=== PATIENT | female | born 1990 | race Caucasian/White ===

== ENCOUNTER 2022-07-31 11:56 | Emergency (ER) | payer OTHER, SELFPAY ==
[2022-07-31 11:58] VITALS: BP 139/92; PULSE 84; RESP 16; TEMP 36.8; O2SAT 100; BMI 35.6
--- NOTE | 2022-07-31 12:04 | NURSING ---
NO OLD EKGS
--- NOTE | 2022-07-31 12:28 | EKG12_ITS ---
Test Reason : PALPS Blood Pressure : / mmHG Vent. Rate : 076 BPM Atrial Rate : 076 BPM P-R Int : 140 ms QRS Dur : 084 ms QT Int : 384 ms P-R-T Axes : 053 015 024 degrees QTc Int : 432 ms Normal sinus rhythm Normal ECG Confirmed by MARÍA ELENA HELTON, DINAH ([id number]), editor producer DESTINY FREEMAN ([id number]) on 08/02/2022 10:25:51 A M Referred By: AR Confirmed By:CYRIL RING MD
--- NOTE | 2022-07-31 12:31 | EX.ED.DYSGE1 ---
HPI History of Present Illness Chief Complaint: Palpitations Narrative Narrative: 32-year-old female presenting to the emergency department with multiple complaints. She states that a week and a half ago she began to have a migraine headache. She describes it as at the back of her head. She notes that I developed a bunch of symptoms after that. Trying to get to what those symptoms larger seems to be difficult however I am able to find out that she went to the urgent care on Friday and was diagnosed with bilateral otitis media and started on amoxicillin. She has now developed fluttering in her chest and chest pressure. No DVT PE risk factors. Her primary care doctor is in [facility]. She notes intermittent fevers. Last fever was yesterday. She states she has not take any prescription medications. She is otherwise healthy. PFSH PFSH Medical History no medical history Allergy/AdvReac Type Severity Reaction Status Date / Time levocetirizine [From Xyzal] Allergy Hives Verified 07/31/22 12:01 sulfamethoxazole Allergy Hives Verified 07/31/22 12:01 [From Bactrim] trimethoprim [From Bactrim] Allergy Hives Verified 07/31/22 12:01 Social History Smoking Status: Never smoker ROS ROS ED Constitutional Constitutional ED: Reports chills and fever(s); Denies weight loss Eyes Eyes: Denies change in vision or diplopia ENT ENT ED: Reports ear pain; Denies rhinorrhea or sore throat Cardiovascular Cardiovascular: Reports chest pain and palpitations; Denies orthopnea or racing heartbeat Respiratory/Chest Respiratory/Chest: Denies cough, dyspnea or orthopnea Gastrointestinal Gastrointestinal: Denies abdominal pain, diarrhea, nausea or vomiting Genitourinary Genitourinary ED: Denies dysuria, hematuria or urinary frequency Musculoskeletal Musculoskeletal: Denies arthralgias or myalgias Integumentary Denies abscess or rash Neurologic Neurologic: Reports headache(s); Denies weakness Psychiatric Psychiatric: Denies anxiety, depression, suicidal ideation or suicidal thoughts Endocrine Endocrinology: Denies polydipsia, polyphagia or polyuria Allergic/Immunologic Allergic/Immunologic ED: Denies mouth swelling, tongue swelling or urticaria EXAM Physical Exam Const Vital Signs: 07/31/22 11:58 07/31/22 12:22 Temperature 98.2 F Temperature Source Temporal Pulse Rate 84 Respiratory Rate 16 Respiratory Effort Normal Non-Labored Respiratory Pattern Normal Blood Pressure 139/92 H Blood Pressure Mean 107 Pulse Ox 100 Oxygen Delivery Method Room Air Positive well nourished and well developed General Appearance ED: well developed HEENT Reports normocephalic, head/scalp atraumatic and moist mucous membranes HEENT Narrative: Bilateral tympanic membranes appear normal. Eyes PERRL and EOMs intact bilaterally Neck no lymphadenopathy, supple and no JVD Resp normal respiratory effort and clear to auscultation bilaterally Cardio regular rate, regular rhythm and no murmurs GI normal to inspection, nondistended, normoactive bowel sounds and non-tender Palpation: soft Back/Spine no CVA tenderness and normal ROM Extremity normal to inspection General Extremety ED: Negative for edema General Extremity: Negative for edema Neuro oriented x3 and CN's II-XII intact bilaterally Sensorium / Orientation: alert Motor Exam: strength 5/5 throughout Psych mental status grossly normal Mood & Affect: Negative for depressed or tearful Skin no rashes or lesions noted and no wounds MDM MDM MDM Narrative Medical decision making narrative: My interpretation of her chest x-ray is no acute process. CBC is normal. D-dimer is normal. CMP is normal. Troponin is normal. My interpretation of the EKG is a normal sinus rhythm. She is remained in a normal sinus rhythm. COVID and influenza are negative. the patient received Toradol for headache as well as IV fluids. Clinically the patient appears quite well. She is currently afebrile with normal vital signs. Her blood work is unremarkable. I think the patient most likely has a viral illness and can be treated conservatively. Lab Data Attestation: I reviewed the patient's lab results. Labs: Laboratory Results - last 24 hr 07/31/22 07/31/22 07/31/22 12:39 12:39 12:39 WBC 7.3 RBC 4.56 Hgb 13.2 Hct 40.3 MCV 88.4 MCH 28.9 MCHC 32.8 RDW Std Deviation 41.4 RDW Coeff of Aaron 12.8 Plt Count 231 MPV 10.7 Immature Gran % (Auto) 0.100 Neut % (Auto) 72.7 H Lymph % (Auto) 17.6 L Izard % (Auto) 5.5 Eos % (Auto) 3.4 Baso % (Auto) 0.7 Absolute Neuts (auto) 5.3 Absolute Lymphs (auto) 1.28 Nucleated RBC % 0 D-Dimer Quant (PE/DVT) < 0.27 L Sodium 141 Potassium 3.6 Chloride 107 Carbon Dioxide 31.0 Anion Gap 3 L BUN 11 Creatinine 0.77 Estim Creat Clear Calc 98.19 Est GFR (MDRD) Af Amer 112 Est GFR (MDRD) Non-Af 92 BUN/Creatinine Ratio 14.3 Glucose 87 Calcium 9.1 Total Bilirubin 0.30 AST 19 ALT 28 Alkaline Phosphatase 138 H Troponin I High Sens 10 Total Protein 7.9 Albumin 4.1 Globulin 3.8 Albumin/Globulin Ratio 1.1 Serum , Qual 07/31/22 12:39 WBC RBC Hgb Hct MCV MCH MCHC RDW Std Deviation RDW Coeff of Aaron Plt Count MPV Immature Gran % (Auto) Neut % (Auto) Lymph % (Auto) Izard % (Auto) Eos % (Auto) Baso % (Auto) Absolute Neuts (auto) Absolute Lymphs (auto) Nucleated RBC % D-Dimer Quant (PE/DVT) Sodium Potassium Chloride Carbon Dioxide Anion Gap BUN Creatinine Estim Creat Clear Calc Est GFR (MDRD) Af Amer Est GFR (MDRD) Non-Af BUN/Creatinine Ratio Glucose Calcium Total Bilirubin AST ALT Alkaline Phosphatase Troponin I High Sens Total Protein Albumin Globulin Albumin/Globulin Ratio Serum , Qual NEGATIVE Radiography Diagnostic Testing: Clinical Impression(s) from Imaging Studies Chest X-Ray 07/31/22 12:45 IMPRESSION: Normal x-ray examination of the chest. Electronically Signed: Clem Restrepo MD at 13:06 EST , EKG Initial EKG: Attestation: I personally reviewed and interpreted this EKG as follows: Comments: EKG is normal sinus rhythm with ventricular rate of 76 bpm Discharge Plan Triage Chief Complaint: Palpitations ED Provider: Tulio Sesay Dx/Rx/DC Orders Clinical Impression: Heart palpitations, Acute viral syndrome, Headache Instructions: ED Palpitations Primary Care Provider: ARACELIS CAMPO MD Referrals: DR CONCETTA [Other] Activity Restrictions/Additional Instructions: Follow-up with primary care as needed Disposition Disposition: Home, Self Care
--- NOTE | 2022-07-31 12:45 | RAD_ITS ---
STUDY: X-RAY CHEST REASON FOR EXAM: Female, 32 years old. Chest pain TECHNIQUE: Single AP portable view of the chest. COMPARISON: None. FINDINGS: EKG electrodes are seen. The lungs are clear and expanded. There is no demonstrated pleural abnormality. Normal size heart. Normal mediastinum and ceferino. Normal visualized pulmonary arteries. Normal visualized aortic arch and descending thoracic aorta. Normal visualized thoracic spine. Normal visualized ribs, clavicles, and shoulders. There is no demonstrated abnormality of the visualized soft tissue structures of the upper abdomen. RAD/Chest 1 View (Portable) IMPRESSION: Normal x-ray examination of the chest. Electronically Signed: Clem Restrepo MD at 13:06 EST ,
[2022-07-31 12:46] LABS: Absolute Lymphocyte Count 1.28 X10^3/uL (0.83-4.51); Absolute Neutrophil Count 5.3 X10^3/uL (2.0-7.7); Basophil# 0.05 X10^3/uL; Basophil% 0.7 % (0-1); Eosinophil# 0.25 X10^3/uL; Eosinophils% 3.4 % (0-5); Hematocrit 40.3 % (37-47); Hemoglobin 13.2 g/dL (12.0-15.0); Lymphocyte # 1.28 X10^3/ul (0.83-4.51); Lymphocyte % 17.6 % (19-41); Mean Corp Hgb Conc 32.8 g/dL (32-36); Mean Corpuscular Hgb 28.9 pg (27.0-32.0); Mean Corpuscular Volume 88.4 fL (81-99); Mean Platelet Vol. 10.7 fl (6.2-12.0); Monocyte% 5.5 % (0-10); NRBC Flagged by Analyzer 0 % (0-5); Neutrophil # 5.28 X10^3/uL (2.7-7.7); Neutrophil % 72.7 % (47-70); Platelet Count 231 K/mm3 (150-450); RBC Distribution Width CV 12.8 % (11.6-14.6); RBC Distribution Width SD 41.4 fl (35.1-43.9); Red Blood Count 4.56 M/mm3 (4.2-5.4); White Blood Count 7.3 K/mm3 (4.4-11.0)
[2022-07-31] MEDS: 0.9% Normal Saline 1,000 ML 1000 ML IV (12:49)
[2022-07-31 12:58] LABS: D-Dimer Quantitative (DVT/PE) < 0.27 FEU/ug/m (0.27-0.49)
[2022-07-31 13:02] LABS: Internal QC Validated? YES +Cl - CLEAR BKGD; Pregnancy, Serum, hCG Quali. NEGATIVE Negative
[2022-07-31 13:06] LABS: ALB/GLOB Ratio 1.1 RATIO (0.9-2.4); AST(SGOT) 19 U/L (15-37); Alanine Aminotransfer ALT/SGPT 28 U/L (13-56); Albumin, Serum 4.1 g/dL (3.2-5.0); Alkaline Phosphatase 138 U/L (45-117); Anion Gap 3 (5-15); BUN 11 mg/dL (7-18); BUN/Creat Ratio 14.3 RATIO (10-20); Calcium,Total 9.1 mg/dL (8.5-10.1); Chloride 107 mmol/L (98-107); Creatinine, Serum 0.77 mg/dL (0.55-1.02); EST Glomerular Filtration Rate 92 mL/min (>60); Est Glom Filt Rate - Afr Amer 112 mL/min (>60); Estimated Creatinine Clearance 98.19 ml/min; Globulin 3.8 g/dL (2.2-4.2); Glucose 87 mg/dL (74-106); Potassium 3.6 mmol/L (3.5-5.1); Protein, Total 7.9 g/dL (6.4-8.2); Sodium Level 141 mmol/L (136-145); Troponin-I HS 10 pg/mL (3.0-54.0)
[2022-07-31 15:19] VITALS: BP 124/71
== END 2022-07-31 15:19 | disposition home or self-care (01) ==
PROVIDERS: Emergency Provider Emergency Medicine; Visit Provider Emergency Medicine
DX: R00.2 Palpitations (principal); R51.9 Headache, unspecified; B34.9 Viral infection, unspecified; R07.9 Chest pain, unspecified; Z20.822 Contact with and (suspected) exposure to COVID-19
CPT/HCPCS: 71045; 80053; 84484; 84703; 85025; 85379; 87428; 93005; 96360; 96361; 99284; J7030; A4216

== ENCOUNTER 2022-08-05 12:42 | Emergency (ER) | payer OTHER, SELFPAY ==
[2022-08-05 12:45] VITALS: BP 155/92; PULSE 96; RESP 18; TEMP 36.7; O2SAT 99; BMI 35.5
[2022-08-05 13:05] LABS: Mucous, Urine 0 SEEN /hpf (<or=2+); White Blood Cells 0 SEEN /hpf (0-5)
[2022-08-05 13:07] LABS: Color, Urine Yellow (Yellow); Glucose, Dipstick Normal (Normal); Ketone-Dipstick Negative (Negative); Leukocyte Esterase-Dipstick Negative /ul (Negative); Nitrite-Dipstick Negative (Negative); Occult Blood-Urine 10 /ul (Negative); Protein-Dipstick Negative (Negative); Urine Bilirubin Dipstick Negative (Negative); Urine Clarity Sl. Cloudy (Clear); Urine Urobilinogen Normal (Normal)
[2022-08-05 13:08] LABS: Internal QC Validated? YES +Cl - CLEAR BKGD; Pregnancy, Urine Negative Negative
[2022-08-05 13:13] LABS: Bacteria 1+ /hpf (None Seen); Red Blood Cells-Urine 0-5 SEEN /hpf (0-5); Squamous Epithelial Cells - UA 0-5 SEEN /hpf (5-10)
--- NOTE | 2022-08-05 14:11 | EKG12_ITS ---
Test Reason : CP Blood Pressure : / mmHG Vent. Rate : 076 BPM Atrial Rate : 076 BPM P-R Int : 138 ms QRS Dur : 080 ms QT Int : 378 ms P-R-T Axes : 044 004 014 degrees QTc Int : 425 ms Normal sinus rhythm Normal ECG Confirmed by OSORIO HELTON, MARIANNE ([id number]), development editor DESTINY FREEMAN ([id number]) on 08/07/2022 11:11:15 AM Referred By: Confirmed By:MARIANNE AC MD
--- NOTE | 2022-08-05 14:23 | NURSING ---
NO OLD EKGS
[2022-08-05 14:41] LABS: Absolute Lymphocyte Count 1.62 X10^3/uL (0.83-4.51); Absolute Neutrophil Count 6.2 X10^3/uL (2.0-7.7); Basophil# 0.04 X10^3/uL; Basophil% 0.5 % (0-1); Eosinophil# 0.21 X10^3/uL; Eosinophils% 2.4 % (0-5); Hematocrit 40.4 % (37-47); Hemoglobin 13.3 g/dL (12.0-15.0); Lymphocyte # 1.62 X10^3/ul (0.83-4.51); Lymphocyte % 18.7 % (19-41); Mean Corp Hgb Conc 32.9 g/dL (32-36); Mean Corpuscular Hgb 28.9 pg (27.0-32.0); Mean Corpuscular Volume 87.8 fL (81-99); Mean Platelet Vol. 10.3 fl (6.2-12.0); Monocyte# 0.58 X10^3/uL; Monocyte% 6.7 % (0-10); NRBC Flagged by Analyzer 0 % (0-5); Neutrophil # 6.19 X10^3/uL (2.7-7.7); Neutrophil % 71.4 % (47-70); Platelet Count 233 K/mm3 (150-450); RBC Distribution Width CV 12.7 % (11.6-14.6); RBC Distribution Width SD 40.6 fl (35.1-43.9); White Blood Count 8.7 K/mm3 (4.4-11.0)
[2022-08-05 14:57] LABS: Anion Gap 7 (5-15); BUN 13 mg/dL (7-18); BUN/Creat Ratio 16.6 RATIO (10-20); Calcium,Total 9.5 mg/dL (8.5-10.1); Chloride 105 mmol/L (98-107); Creatinine, Serum 0.78 mg/dL (0.55-1.02); EST Glomerular Filtration Rate 90 mL/min (>60); Est Glom Filt Rate - Afr Amer 109 mL/min (>60); Estimated Creatinine Clearance 96.93 ml/min; Glucose 97 mg/dL (74-106); Potassium 3.7 mmol/L (3.5-5.1); Sodium Level 139 mmol/L (136-145); Troponin-I HS 11 pg/mL (3.0-54.0)
--- NOTE | 2022-08-05 15:50 | RAD_ITS ---
INDICATION: chest pain EXAMINATION/TECHNIQUE: X-RAY - XR Chest 1 View COMPARISON: 07/31/2022. FINDINGS: LINES/DEVICES: None. LUNGS: No consolidation, edema or effusion. No pneumothorax. MEDIASTINUM AND CARDIOVASCULAR STRUCTURES: Cardiac silhouette not enlarged. Central airways and mediastinal contour are unremarkable. BONES AND SOFT TISSUES: Unremarkable. RAD/Chest 1 View (Portable) IMPRESSION: No radiographic evidence of acute cardiopulmonary disease. Electronically Signed: Melia Christianson MD at 16:25 EST Reading Location ID and State: [id number] / Tel , Service support ,
--- NOTE | 2022-08-05 16:09 | ED.VIS.CHEST ---
HPI History of Present Illness Chief Complaint: Chest Pain Informant: patient Onset/Context/Timing Onset: Days Activity at onset: gradual Timing: Intermittent Quality: Positive for Dull Location: Right Chest and Left Chest Current Severity: Mild Maximum Severity: Mild Worsened By: Nothing Relieved By: Nothing Associated Symptoms: Positive for Cough, Fever and Palpitations; Negative for Nausea, Vomiting, Diaphoresis, Dyspnea or Acid Reflux Narrative Narrative: 30-year-old Kelly past medical history. Said on 07 28 she was diagnosed in urgent care bilateral otitis media was placed on amoxicillin his symptoms is resolved. She had palpitations since last Friday. With some chest discomfort which she states is bilateral. Not pleuritic. She has had no travel surgery or immobilization. No hemoptysis. No history of DVT or PE. No cardiac history. She is also had an episode of urinary incontinence with some flank discomfort. She denies dysuria or hematuria. Prior Similar Symptoms: Yes Recent Illness/Hospitalization: No CVD Risk Factors: Negative for Hypertension or Diabetes PE Risk Factors: Negative for Recent Travel/Surgery, Recent Immobilization, Prior DVT or PE, Cancer or OCP + Smoking + >/=35 TAD Risk Factors: Negative for Marfan's Syndrome [facility] Medical History Palpitations Allergy/AdvReac Type Severity Reaction Status Date / Time levocetirizine [From Xyzal] Allergy Hives Verified 08/05/22 12:44 sulfamethoxazole Allergy Hives Verified 08/05/22 12:44 [From Bactrim] trimethoprim [From Bactrim] Allergy Hives Verified 08/05/22 12:44 Social History Smoking Status: Never smoker ROS ROS ED ROS Narrative Urinary incontinence. Atypical chest pain. Fevers that have resolved. Cough. Review of Systems ROS Unobtainable: Denies due to encephalopathy Constitutional Constitutional ED: Reports fever(s); Denies chills Eyes Eyes: Reports none ENT ENT ED: Reports ear pain; Denies rhinorrhea or sore throat Cardiovascular Cardiovascular: Reports as per HPI, chest pain and palpitations; Denies racing heartbeat Respiratory/Chest Respiratory/Chest: Reports cough Genitourinary Genitourinary ED: Denies dysuria or hematuria Musculoskeletal Musculoskeletal: Reports back pain; Denies arthralgias Integumentary Denies abscess Neurologic Neurologic: Denies headache(s) Endocrine Endocrinology: Denies cold intolerance Hematologic/Lymphatic Hematologic/Lymphatic: Denies easy bleeding Allergic/Immunologic Allergic/Immunologic ED: Denies mouth swelling or tongue swelling EXAM Physical Exam Narrative Exam Narrative: Well-appearing 13-year-old female. Vital signs stable afebrile. Pulse ox 9 9% room air no signs hypoxia. H EENT exam unremarkable. TMs normal. Posterior pharynx normal. Neck nontender no lymphadenopathy. Lungs clear to auscultation bilaterally. Heart regular rhythm rate about 80 no murmur. Chest wall nontender. Abdomen soft nontender. Moving all 4 extremities. Neurovascular intact. Calves are nontender without edema or cords. Back nontender. Neurologic exam is awake alert with no focal motor deficits. Const Vital Signs: 08/05/22 12:45 Temperature 98.1 F Temperature Source Temporal Pulse Rate 96 Respiratory Rate 18 Blood Pressure 155/92 H Blood Pressure Mean 113 Pulse Ox 99 Oxygen Delivery Method Room Air Positive well nourished and well developed; Negative for obese, cachectic, contractures or unkempt General Appearance ED: well developed and NAD; Negative for unkempt, cachectic, contractures or pallor Nutritional Appearance: Negative for cachectic or obese HEENT Reports TM's clear and moist mucous membranes; Denies dry mucous membranes normocephalic and atraumatic; Negative for trauma Tympanic Membrane ED: Yes TM's clear Mouth ED: No dry mucous membranes Mouth: No dry mucous membranes Eyes PERRL and EOMs intact bilaterally General Eye ED: Negative for pale conjunctiva or scleral icterus Neck no lymphadenopathy, supple and no JVD General: Negative for tenderness Chest Wall inspection of chest normal and palpation of chest normal Chest: Negative for tenderness Resp normal respiratory effort and clear to auscultation bilaterally Effort and Inspection: Negative for respiratory distress Auscultation: Negative for rales, rhonchi or wheezes Cardio regular rate, regular rhythm, S1 normal heart sound, S2 normal heart sound and no murmurs Rate: Negative for bradycardia Rhythm: Negative for abnormal rhythm Peripheral Pulses: pulses 2+ throughout GI normal to inspection, nondistended, normoactive bowel sounds, soft to palpation, non-tender, non-distended and no masses Auscultation: Negative for hyperactive bowel sounds Palpation: Negative for splenomegaly Back/Spine no CVA tenderness and no thoracic nor lumbar tenderness General Back: Negative for CVA tenderness Cervical Spine: Negative for cervical spine tenderness Extremity normal to inspection General Extremety ED: Negative for edema or pulses abnormal General Extremity: Negative for edema or pulses abnormal Neuro oriented x3, CN's II-XII intact bilaterally and no sensory deficits noted Sensorium / Orientation: awake, alert, oriented to person, oriented to place and oriented to time; Negative for confused, lethargic or stuporous Motor Exam: strength 5/5 throughout Psych mental status grossly normal Appearance: Negative for unkempt Attitude: No agitated Mood & Affect: Negative for depressed, anxious or tearful Skin no rashes or lesions noted and no wounds General Skin Exam: Negative for jaundice or pallor Rashes: No rashes noted Trauma: Negative for abrasion Heart Score History: Slightly/Non-Suspicious ECG: Normal Age: </= 45 years Risk Factors: No Risk Factors Troponin: </= Normal Limit Score: 0 MDM MDM MDM Narrative Medical decision making narrative: 23 March palpitations, atypical chest pain and other symptoms. Her exam is completely normal. Nurses put in protocol orders for chest pain. All were negative. Troponin was 11. Her urine is negative. As was her chest x-ray. She will be discharged home with outpatient follow-up with her primary care physician in [place] or a local primary care physician. Lab Data Attestation: I reviewed the patient's lab results. Lab results narrative: CBC normal. White count 8. H&H 13 and 40. Electrolytes normal gap of 7 normal BUN and creatinine. Glucose 97. UA is negative. No white or red cells. 1+ bacteria. No nitrites. Serum test negative. Chest x-ray negative. EKG normal. Labs: Laboratory Results - last 24 hr 08/05/22 08/05/22 08/05/22 12:58 14:30 14:30 WBC 8.7 RBC 4.60 Hgb 13.3 Hct 40.4 MCV 87.8 MCH 28.9 MCHC 32.9 RDW Std Deviation 40.6 RDW Coeff of Aaron 12.7 Plt Count 233 MPV 10.3 Immature Gran % (Auto) 0.300 Neut % (Auto) 71.4 H Lymph % (Auto) 18.7 L Mcclain % (Auto) 6.7 Eos % (Auto) 2.4 Baso % (Auto) 0.5 Absolute Neuts (auto) 6.2 Absolute Lymphs (auto) 1.62 Nucleated RBC % 0 Sodium 139 Potassium 3.7 Chloride 105 Carbon Dioxide 27.0 Anion Gap 7 BUN 13 Creatinine 0.78 Estim Creat Clear Calc 96.93 Est GFR (MDRD) Af Amer 109 Est GFR (MDRD) Non-Af 90 BUN/Creatinine Ratio 16.6 Glucose 97 Calcium 9.5 Troponin I High Sens 11 Urine Color Yellow Urine Clarity Sl. Cloudy Urine pH 6.0 Ur Specific [place] 1.020 Urine Protein Negative Urine Glucose (UA) Normal Urine Ketones Negative Urine Occult Blood 10 H Urine Nitrite Negative Urine Bilirubin Negative Urine Urobilinogen Normal Ur Leukocyte Esterase Negative Urine RBC 0-5 SEEN Urine WBC 0 SEEN Ur Squamous Epith Cells 0-5 SEEN Urine Bacteria 1+ Urine Mucus 0 SEEN Urine Test Negative Radiography Chest X-Ray - ED: 1 View, Read by ED Physician, Heart, Lungs, Mediastinum, Bony Structures, No Acute Disease and Chronic Changes Diagnostic Testing: Chest x-ray, portable, single view turbid by myself is normal. Normal cardiac silhouette. Normal mediastinum. Normal lung herring. Rhythm Strip Rhythm Strip: Sinus Rhythm Rate: 76 Ectopy: None EKG Initial EKG: Attestation: I personally reviewed and interpreted this EKG as follows: Interpretation: Sinus Rhythm and No Acute Injury Pattern Comments: Normal sinus rhythm rate of 76 no acute signs of AR or ischemia. Prior EKG tracings: available for review Prior: Changed Discharge Plan Triage Chief Complaint: Chest Pain Other Complaint: Dizziness ED Provider: Armin Puente Dx/Rx/DC Orders Clinical Impression: Chest pain of uncertain etiology, Heart palpitations, Acute flank pain Instructions: ED Chest Pain, Uncertain Cause Primary Care Provider: ARACELIS CAMPO Referrals: ARACELIS CAMPO [Other] (Call follow-up with your doctor soon as possible or get a local primary care physician.) Eren Cardenas MD [Med Staff - Motor Assembler] - As soon as possible Activity Restrictions/Additional Instructions: Follow-up with either local or your primary care physician. They can place you on a Holter or an event monitor to see if you have any type of abnormal heart rhythm. All your blood work today was normal. Your urinalysis was normal. Your chest x-ray and EKG were normal. Disposition Disposition: Home, Self Care
[2022-08-05 16:21] VITALS: PULSE 76
== END 2022-08-05 16:25 | disposition home or self-care (01) ==
PROVIDERS: Emergency Provider Emergency Medicine; Visit Provider Emergency Medicine
DX: R07.9 Chest pain, unspecified (principal); R00.2 Palpitations; R10.9 Unspecified abdominal pain
CPT/HCPCS: 71045; 80048; 81001; 81025; 84484; 85025; 93005; 99285; A4216

== ENCOUNTER 2023-05-25 11:51 | Emergency (ER) | payer OTHER, SELFPAY ==
[2023-05-25 11:52] VITALS: BP 135/96; PULSE 84; RESP 18; TEMP 36.1; O2SAT 98; BMI 35.5
--- NOTE | 2023-05-25 12:34 | CT_ITS ---
STUDY: CT BRAIN WITHOUT CONTRAST REASON FOR EXAM: Female, 33 years old. Left facial tingling/numbness x 1.5 weeks RADIATION DOSAGE (If Supplied By Facility): CTDIvol = ( 47.06 ) mGy, DLP = ( 907.97 ) mGycm TECHNIQUE: Transaxial CT imaging of the brain was performed without administration of intravenous contrast material. Individualized dose optimization techniques were used for this CT. COMPARISON: No relevant priors. FINDINGS: Normal soft tissue structures. Normal calvarium. Normal size ventricles and extra-axial spaces for the patient''s age. Normal white matter tracts of the cerebral hemispheres. Normal basal ganglia and thalami. Normal brainstem. Normal cerebellum. There is no intracranial hemorrhage. There are no findings of an acute ischemic infarction. Normal visualized paranasal sinuses. CT/Brain/Head without Contrast IMPRESSION: Normal unenhanced CT scan of the brain. Electronically Signed: Moshe Kidd MD at 13:19 EDT ,
--- NOTE | 2023-05-25 12:35 | EDS_ITS ---
HPI History of Present Illness Chief Complaint: Numb/Ting Narrative Narrative: Patient presents with left facial tingling. Patient states she has been going through a lot of health issues over the last almost year. She has issues with chronic headaches that occur since she was very young. Those have not changed or worsen that is not why she is here. She is not having 1 now. She states that she has been getting episodes of chest pain many times a week since July. She has been seen in the emergency department. She has seen cardiology. They have done echoes EKGs and stress test all of which is normal. She states she is just getting used to this. She is not having this now and that is not why she is really here. But she states her symptoms seem to be moving up because she has been getting tingling in her left face. She does scribes it as above and below the left lip and then wrapping around to just above the left eye. No weakness. She can still feel things but it is tingly and has extra sensation. It is not there at 100% of the time. It does come and go but it is essentially there every day. Has been going on for about 10 days or more. She actually did see her primary care physician about this. He did blood work and has her arranged to follow-up with a neurologist. I did review the patient's blood work and other studies on her MyChart on her phone. Her CBC was normal. Her electrolytes including glucose was normal. These were all done within the last 2 weeks and after her symptoms started. In December she had normal TSH. She has had normal cortisol. She had normal stress test. She has not had any imaging of her head. [facility] Medical History Palpitations Allergy/AdvReac Type Severity Reaction Status Date / Time levocetirizine [From Xyzal] Allergy Hives Verified 05/25/23 11:53 sulfamethoxazole Allergy Hives Verified 05/25/23 11:53 [From Bactrim] trimethoprim [From Bactrim] Allergy Hives Verified 05/25/23 11:53 Social History Smoking Status: Never smoker ROS ROS ED ROS Narrative A complete review of systems was performed and is negative except as documented in the history of present illness. Some specific details below. Constitutional: No recent fevers or chills. No malaise. EYE: No discharge, visual complaints, or pain. No double vision or difficulty moving the eyes. ENT: Tingling on left side of face. No swelling. She does not and has never had a rash at any time. No nosebleeds. No weakness. CV: See history of present illness. Respiratory: Not short of breath or coughing. GI: No abdominal pain. No nausea vomiting diarrhea. No blood in stool. : No frequency dysuria or hematuria. Musculoskeletal: No recent trauma. No pains. No swelling. Skin: No rash. Nondiaphoretic. Neuro: No weakness or numbness in any areas other than the left side of her face. Endocrine: No polyuria or polydipsia. EXAM Physical Exam Narrative Exam Narrative: CONSTITUTIONAL: Patient is nontoxic in appearance. The patient looks comfortable. Work of breathing looks normal. HEENT: No notable trauma. Mucous membranes moist. No sinus tenderness. No indication of pain with swallowing. There is no asymmetry. There is no rash. Negative Kelley sign. No rash in the ears. Tympanic membranes are normal. She can smile close and open eyes easily. No sign of weakness at all. She still does have sensation on both sides well. But she does get tingling on the left times. EYES: No conjunctival injection. No proptosis. No limitation of range of motion. NECK:No JVD. No stridor. CARDIOVASCULAR: Regular rate. Regular rhythm. No notable murmur. No JVD. RESPIRATORY: No respiratory distress. Breathing is unlabored. No wheezes. No rhonchi. No rales. No pain with a deep breath. GASTROINTESTINAL: Not distended. Bowel sounds are normal. No tenderness. GENITOURINARY: No tenderness over the bladder. No CVA tenderness. MUSCULOSKELETAL: Atraumatic. No peripheral edema. NEUROLOGICAL: Patient is alert and appropriate. No focal deficit noted. Also see above facial exam SKIN: No noted rashes. No diaphoresis. PSYCHIATRIC: Patient is calm. Mood is appropriate. Const Vital Signs: 05/25/23 11:52 Temperature 97 F L Temperature Source Temporal Pulse Rate 84 Respiratory Rate 18 Blood Pressure 135/96 H Blood Pressure Mean 109 Pulse Ox 98 Oxygen Delivery Method Room Air MDM MDM MDM Narrative Medical decision making narrative: I do not think patient needs blood work or thyroid studies. She had normal calcium electrolytes on a blood test that was done after her symptoms started. She has recent TSH that is normal. She has not had any cranial imaging. We will do CT scan of the head today to rule out major pathology. Even if normal, I recommend she follow-up with neurology. They may also do more sensitive imaging such as MRI. My independent interpretation the patient's CT scan of the head without contrast shows no acute process. Final reading is same. Patient is happy that this is normal. She still needs to follow-up with her neurologist. She may have further imaging. At this time she did request that we send off further thyroid studies because they have not been done in almost 6 months. I will send these off but we will not wait for these test to come back as I explained we probably will get them back today. She is fine with this plan Radiography Diagnostic Testing: Clinical Impression(s) from Imaging Studies Brain CT 05/25/23 12:34 IMPRESSION: Normal unenhanced CT scan of the brain. Electronically Signed: Moshe Kidd MD at 13:19 EDT Reading Location ID and State: [facility] / [place] , Service support , Discharge Plan Triage Chief Complaint: Numb/Ting ED Provider: Stephon Shafer Dx/Rx/DC Orders Clinical Impression: Facial paresthesia Instructions: ED Paraesthesias Primary Care Provider: ARACELIS CAMPO Referrals: [facility] Doctor,Out of [Non-Staff] - Activity Restrictions/Additional Instructions: Follow-up with your primary physician and your neurologist. Disposition Disposition: Home, Self Care
[2023-05-25 14:55] LABS: Free T3 2.4 pg/mL (2.18-3.98); T4 Free Direct 1.05 ng/dL (0.76-1.46)
== END 2023-05-25 14:27 | disposition home or self-care (01) ==
PROVIDERS: Emergency Provider Emergency Medicine; Visit Provider Emergency Medicine
DX: R20.2 Paresthesia of skin (principal); R51.9 Headache, unspecified; R20.0 Anesthesia of skin
CPT/HCPCS: 70450; 84439; 84443; 84481; 99282

== ENCOUNTER 2023-05-30 10:17 | Emergency (ER) | payer OTHER, SELFPAY ==
[2023-05-30 10:17] VITALS: BP 135/89; PULSE 82; RESP 14; TEMP 36.6; O2SAT 100; BMI 33.9
--- NOTE | 2023-05-30 10:58 | EKG12_ITS ---
Test Reason : SYNCOPE Blood Pressure : / mmHG Vent. Rate : 067 BPM Atrial Rate : 067 BPM P-R Int : 140 ms QRS Dur : 082 ms QT Int : 378 ms P-R-T Axes : 047 005 018 degrees QTc Int : 399 ms Normal sinus rhythm Normal ECG Confirmed by MELODIE HELOTN, STACIA ([id number]), commissioning editor CHRISTAL AL ([id number]) on 06/03/2023 11:46:25 AM Referred By: BRYAN Confirmed By:STACIA SEWELL MD
--- NOTE | 2023-05-30 11:05 | RAD_ITS ---
INDICATION: syncope EXAMINATION/TECHNIQUE: X-RAY - XR Chest 1 View COMPARISON: Prior study dated: 08/05/2022. FINDINGS: LINES/DEVICES: None. LUNGS: No consolidation, edema or effusion. No pneumothorax. MEDIASTINUM AND CARDIOVASCULAR STRUCTURES: Cardiac silhouette not enlarged. Central airways and mediastinal contour are unremarkable. BONES AND SOFT TISSUES: Unremarkable. RAD/Chest 1 View (Portable) IMPRESSION: No radiographic evidence of acute cardiopulmonary disease. Electronically Signed: Zackery Myrick MD at 11:18 EDT ,
--- NOTE | 2023-05-30 11:13 | EDS_ITS ---
HPI History of Present Illness Chief Complaint: Syncope Informant: patient Narrative Narrative: Patient [id number] female presenting to the emergency department following a syncopal episode. Patient states for the past year she has been multiple times. Had been hospitalized she reports seeing her primary care doctor in the [place] area has had extensive testing. She states that her Renin levels are low but her aldosterone is normal. She has been to subspecialist with no firm diagnosis. She was seen in the emergency department approximate week ago with left facial paresthesias. That is continued. Last night she states that her blood pressure was elevated. The 152/110 range. She had at 1 point she got up in the night to utilize the bathroom. And believes that she had a syncopal episode on the bed. She does not remember any prodrome.. She states that she feels generally fatigued. She states that last week she weighed 220 pounds this morning she weighed 211 (weighing patient on the bed she is to 18.7). She denies any swelling. No change in bowel or bladder. She denies any injuries from the syncopal episode. She denies any new medications or changes in her medications. [facility] Medical History Palpitations Allergy/AdvReac Type Severity Reaction Status Date / Time levocetirizine [From Xyzal] Allergy Hives Verified 05/25/23 11:53 sulfamethoxazole Allergy Hives Verified 05/30/23 10:17 [From Bactrim] trimethoprim [From Bactrim] Allergy Hives Verified 05/30/23 10:17 Social History Smoking Status: Never smoker ROS ROS ED ROS Narrative Generalized weakness Constitutional Constitutional ED: Reports weight loss; Denies chills or fever(s) Eyes Eyes: Denies blurry vision, change in vision or diplopia ENT ENT ED: Denies ear pain, rhinorrhea or sore throat Cardiovascular Cardiovascular: Denies chest pain, orthopnea, palpitations or racing heartbeat Respiratory/Chest Respiratory/Chest: Denies cough, dyspnea or orthopnea Gastrointestinal Gastrointestinal: Denies abdominal pain, diarrhea, nausea or vomiting Genitourinary Genitourinary ED: Denies dysuria, hematuria or urinary frequency Musculoskeletal Musculoskeletal: Denies arthralgias or myalgias Integumentary Denies abscess or rash Neurologic Neurologic: Reports paresthesias; Denies headache(s) Psychiatric Psychiatric: Denies anxiety, depression, suicidal ideation or suicidal thoughts Endocrine Endocrinology: Denies polydipsia, polyphagia or polyuria Allergic/Immunologic Allergic/Immunologic ED: Denies mouth swelling, tongue swelling or urticaria EXAM Physical Exam Const Vital Signs: 05/30/23 10:17 05/30/23 10:52 Temperature 97.8 F Temperature Source Temporal Pulse Rate 82 Respiratory Rate 14 Respiratory Effort Normal Respiratory Pattern Normal Blood Pressure 135/89 H Blood Pressure Mean 104 Pulse Ox 100 Oxygen Delivery Method Room Air Positive well nourished and well developed General Appearance ED: well developed HEENT Reports normocephalic, head/scalp atraumatic and moist mucous membranes Eyes PERRL and EOMs intact bilaterally Neck no lymphadenopathy, supple and no JVD Resp normal respiratory effort and clear to auscultation bilaterally Cardio regular rate, regular rhythm and no murmurs GI normal to inspection, nondistended, normoactive bowel sounds and non-tender Palpation: soft Back/Spine no CVA tenderness and normal ROM Extremity normal to inspection General Extremety ED: Negative for edema General Extremity: Negative for edema Neuro oriented x3 and CN's II-XII intact bilaterally Sensorium / Orientation: alert Motor Exam: strength 5/5 throughout Psych mental status grossly normal Mood & Affect: Negative for depressed or tearful Skin no rashes or lesions noted and no wounds MDM MDM MDM Narrative Medical decision making narrative: My independent interpretation of the chest x-ray is no acute process and a normal mediastinal silhouette. Radiology concurs with this.. White count 6.5 hemoglobin 13.4 the platelet count 241. BMP is unremarkable. Urinalysis is. test is in. Troponin is normal at 16. Patient has remained in a normal sinus rhythm. Her EKG shows no preexcitation QT prolongation or QRS widening. Blood pressures are acceptable for discharge. Would recommend that she continue to monitor record and discussed with her doctors. Would recommend primary care follow-up and possibly endocrinology.. Lab Data Attestation: I reviewed the patient's lab results. Labs: Laboratory Results - last 24 hr 05/30/23 11:15 WBC 6.5 RBC 4.68 Hgb 13.4 Hct 41.3 MCV 88.2 MCH 28.6 MCHC 32.4 RDW Std Deviation 41.7 RDW Coeff of Aaron 12.9 Plt Count 241 MPV 10.7 Immature Gran % (Auto) 0.200 Neut % (Auto) 69.1 Lymph % (Auto) 19.4 [place] % (Auto) 7.7 Eos % (Auto) 2.8 Baso % (Auto) 0.8 Absolute Neuts (auto) 4.5 Absolute Lymphs (auto) 1.27 Nucleated RBC % 0 Sodium 139 Potassium 3.7 Chloride 107 Carbon Dioxide 28.0 Anion Gap 4 L BUN 8 Creatinine 0.85 Estim Creat Clear Calc 88.13 Est GFR (MDRD) Af Amer 99 Est GFR (MDRD) Non-Af 82 BUN/Creatinine Ratio 9.4 L Glucose 100 Calcium 9.3 Troponin I High Sens 16 Urine Color Yellow Urine Clarity Clear Urine pH 7.0 Ur Specific [place] 1.005 Urine Protein Negative Urine Glucose (UA) Normal Urine Ketones Negative Urine Occult Blood Negative Urine Nitrite Negative Urine Bilirubin Negative Urine Urobilinogen Normal Ur Leukocyte Esterase 25 H Urine RBC 0 SEEN Urine WBC 0 SEEN Ur Squamous Epith Cells 0-5 SEEN Urine Bacteria 0 SEEN Urine Mucus 0 SEEN Urine Test Negative Radiography Diagnostic Testing: Clinical Impression(s) from Imaging Studies Chest X-Ray 05/30/23 11:05 IMPRESSION: No radiographic evidence of acute cardiopulmonary disease. Electronically Signed: Zackery Myrick MD at 11:18 EDT , EKG Initial EKG: Attestation: I personally reviewed and interpreted this EKG as follows: Comments: Sinus rhythm with a ventricular rate of 67 bpm. No concerning features of ACS noted Discharge Plan Triage Chief Complaint: Syncope ED Provider: Tulio Sesay Dx/Rx/DC Orders Clinical Impression: Facial paresthesia, Syncope, Weakness Instructions: ED Fainting, Uncertain Cause, ED Weakness (Uncertain Cause) Primary Care Provider: ARACELIS CAMPO Referrals: ARACELIS CAMPO [Other] - As soon as possible Disposition Disposition: Home, Self Care
[2023-05-30 11:31] LABS: Bacteria 0 SEEN /hpf (None Seen); Mucous, Urine 0 SEEN /hpf (<or=2+); Red Blood Cells-Urine 0 SEEN /hpf (0-5); White Blood Cells 0 SEEN /hpf (0-5)
[2023-05-30 11:32] LABS: Absolute Lymphocyte Count 1.27 X10^3/uL (0.83-4.51); Absolute Neutrophil Count 4.5 X10^3/uL (2.0-7.7); Basophil# 0.05 X10^3/uL; Basophil% 0.8 % (0-1); Eosinophil# 0.18 X10^3/uL; Eosinophils% 2.8 % (0-5); Hematocrit 41.3 % (37-47); Hemoglobin 13.4 g/dL (12.0-15.0); Lymphocyte # 1.27 X10^3/ul (0.83-4.51); Lymphocyte % 19.4 % (19-41); Mean Corp Hgb Conc 32.4 g/dL (32-36); Mean Corpuscular Hgb 28.6 pg (27.0-32.0); Mean Corpuscular Volume 88.2 fL (81-99); Mean Platelet Vol. 10.7 fl (6.2-12.0); Monocyte% 7.7 % (0-10); NRBC Flagged by Analyzer 0 % (0-5); Neutrophil # 4.52 X10^3/uL (2.7-7.7); Neutrophil % 69.1 % (47-70); Platelet Count 241 K/mm3 (150-450); RBC Distribution Width CV 12.9 % (11.6-14.6); RBC Distribution Width SD 41.7 fl (35.1-43.9); Red Blood Count 4.68 M/mm3 (4.2-5.4); White Blood Count 6.5 K/mm3 (4.4-11.0)
[2023-05-30 11:33] LABS: Color, Urine Yellow (Yellow); Glucose, Dipstick Normal (Normal); Ketone-Dipstick Negative (Negative); Leukocyte Esterase-Dipstick 25 /ul (Negative); Nitrite-Dipstick Negative (Negative); Occult Blood-Urine Negative /ul (Negative); Protein-Dipstick Negative (Negative); Specific Gravity, Urine 1.005 (1.002-1.030); Urine Bilirubin Dipstick Negative (Negative); Urine Clarity Clear (Clear); Urine Urobilinogen Normal (Normal)
[2023-05-30 11:47] LABS: Internal QC Validated? YES +Cl - CLEAR BKGD; Pregnancy, Urine Negative Negative; Squamous Epithelial Cells - UA 0-5 SEEN /hpf (5-10)
[2023-05-30 11:52] LABS: Anion Gap 4 (5-15); BUN 8 mg/dL (7-18); BUN/Creat Ratio 9.4 RATIO (10-20); Calcium,Total 9.3 mg/dL (8.5-10.1); Chloride 107 mmol/L (98-107); Creatinine, Serum 0.85 mg/dL (0.55-1.02); EST Glomerular Filtration Rate 82 mL/min (>60); Est Glom Filt Rate - Afr Amer 99 mL/min (>60); Estimated Creatinine Clearance 88.13 ml/min; Glucose 100 mg/dL (74-106); Potassium 3.7 mmol/L (3.5-5.1); Sodium Level 139 mmol/L (136-145); Troponin-I HS 16 pg/mL (3.0-54.0)
[2023-05-30 13:09] VITALS: BP 121/73
[2023-05-30 13:10] VITALS: BP 121/73; PULSE 64; RESP 18; O2SAT 100
== END 2023-05-30 13:22 | disposition home or self-care (01) ==
PROVIDERS: Emergency Provider Emergency Medicine; Visit Provider Emergency Medicine
DX: R55 Syncope and collapse (principal); R20.2 Paresthesia of skin
CPT/HCPCS: 71045; 80048; 81001; 81025; 84484; 85025; 93005; 99285; A4216

== ENCOUNTER 2023-10-23 12:05 | Emergency (ER) | payer OTHER, SELFPAY ==
[2023-10-23 12:06] VITALS: BP 131/84; PULSE 81; RESP 14; TEMP 36.6; O2SAT 100; BMI 33.4
--- NOTE | 2023-10-23 12:41 | ED.VIS.CHEST ---
HPI History of Present Illness Chief Complaint: Chest Pain Informant: patient Onset/Context/Timing Onset: Today and Hours (3-4) Activity at onset: gradual and light activity (Standing at work) Timing: Continuous Quality: Positive for Aching, Dull, Heaviness, Pressure, Sharp and Tightness Location: Substernal, Right Parasternal and Right Chest Worsened By: Breathing Relieved By: Nothing Associated Symptoms: Positive for Dyspnea and Lightheadedness; Negative for Nausea, Vomiting, Diaphoresis, Cough, Fever, Acid Reflux or Palpitations Narrative Narrative: Patient presents with chest pain that began today. Patient states that began approximately 3 to 4 hours ago. Patient states that she was standing while she was at work when the pain began. Patient states the pain is worse on the right side of her chest. Patient states it is worse with deep breathing. Patient states he feels short of breath. Patient also admits to some lightheadedness. Patient denies any nausea or vomiting. Patient denies any diaphoresis. Patient denies any cough or fevers. CVD Risk Factors: Positive for Hypertension; Negative for Diabetes, Hypercholesterolemia, Family History 1' </=55 or Smoking PE Risk Factors: Negative for Recent Travel/Surgery, Recent Immobilization, Prior DVT or PE, Cancer or OCP + Smoking + >/=35 PFSH PFSH Medical History (Updated 10/23/23 @ 15:[address] Rodríguez Tian DO) Hypertension Palpitations Allergy/AdvReac Type Severity Reaction Status Date / Time levocetirizine [From Xyzal] Allergy Hives Verified 10/23/23 12:06 sulfamethoxazole Allergy Hives Verified 10/23/23 12:06 [From Bactrim] trimethoprim [From Bactrim] Allergy Hives Verified 10/23/23 12:06 Surgical History no surgical history no surgical history Social History Smoking Status: Never smoker ROS ROS ED Constitutional Constitutional ED: Denies chills or fever(s) Eyes Eyes: Denies blurry vision or change in vision ENT ENT ED: Denies rhinorrhea or sore throat Cardiovascular Cardiovascular: Reports chest pain; Denies palpitations Respiratory/Chest Respiratory/Chest: Reports dyspnea; Denies cough Gastrointestinal Gastrointestinal: Denies nausea or vomiting Genitourinary Genitourinary ED: Denies dysuria or hematuria Musculoskeletal Musculoskeletal: Denies back pain or neck pain Integumentary Denies abscess or rash Neurologic Neurologic: Denies headache(s) or weakness Allergic/Immunologic Allergic/Immunologic ED: Denies mouth swelling or urticaria EXAM Physical Exam Const Vital Signs: 10/23/23 12:06 10/23/23 12:13 10/23/23 13:04 Temperature 97.9 F Temperature Source Temporal Pulse Rate 81 Respiratory Rate 14 Respiratory Effort Normal Non-Labored Blood Pressure 131/84 H Blood Pressure Mean 99 Pulse Ox 100 99 Oxygen Delivery Method Room Air Room Air 10/23/23 13:57 10/23/23 14:05 Temperature Temperature Source Pulse Rate 72 76 Respiratory Rate 16 15 Respiratory Effort Blood Pressure 124/73 H Blood Pressure Mean 90 Pulse Ox 99 99 Oxygen Delivery Method Room Air Positive well nourished and well developed General Appearance ED: well developed and NAD HEENT Reports moist mucous membranes Neck supple and no JVD Chest Wall inspection of chest normal and palpation of chest normal Resp normal respiratory effort and clear to auscultation bilaterally Cardio regular rate and regular rhythm GI soft to palpation, non-tender and non-distended Extremity normal to inspection General Extremety ED: Negative for edema or tenderness General Extremity: Negative for edema Neuro oriented x3, CN's II-XII intact bilaterally and no sensory deficits noted Sensorium / Orientation: awake and alert Motor Exam: strength 5/5 throughout Psych mental status grossly normal Heart Score History: Slightly/Non-Suspicious ECG: Normal Age: </= 45 years Risk Factors: 1 or 2 Risk Factors Troponin: </= Normal Limit Score: 1 MDM MDM MDM Narrative Medical decision making narrative: Differential diagnosis includes cardiac dysrhythmia, cardiac ischemia, pneumonia, pneumothorax, pulmonary embolism, GERD, musculoskeletal pain, and anxiety. EKG will be obtained to assess for cardiac dysrhythmia and cardiac ischemia. Chest x-ray will be obtained to assess for pneumonia and pneumothorax. CBC will be obtained to assess for leukocytosis and anemia. Basic metabolic profile will be obtained to assess for electrolyte abnormality and renal function. High-sensitivity troponin will be obtained to assess for cardiac ischemia. D-dimer will be obtained to assess for pulmonary embolism. Lab Data Attestation: I reviewed the patient's lab results. Lab results narrative: CBC was reviewed and was within normal limits. Basic metabolic profile was reviewed and was within normal limits. Initial high-sensitivity troponin was reviewed and was normal at 14. D-dimer was reviewed and was normal at <0.27. 2-hour repeat high-sensitivity troponin was reviewed and was normal at 14. Labs: Laboratory Results - last 24 hr 10/23/23 10/23/23 13:20 15:40 WBC 7.0 RBC 4.30 Hgb 12.6 Hct 37.9 MCV 88.1 MCH 29.3 MCHC 33.2 RDW Std Deviation 42.3 RDW Coeff of Aaron 13.2 Plt Count 208 MPV 10.8 Immature Gran % (Auto) 0.100 Neut % (Auto) 69.3 Lymph % (Auto) 20.1 [place] % (Auto) 7.3 Eos % (Auto) 2.6 Baso % (Auto) 0.6 Absolute Neuts (auto) 4.9 Absolute Lymphs (auto) 1.41 Nucleated RBC % 0 D-Dimer Quant (PE/DVT) < 0.27 L Sodium 140 Potassium 3.6 Chloride 108 H Carbon Dioxide 27.0 Anion Gap 5 BUN 12 Creatinine 0.81 Estim Creat Clear Calc 114.06 Est GFR (MDRD) Af Amer 104 Est GFR (MDRD) Non-Af 86 BUN/Creatinine Ratio 14.8 Glucose 94 Calcium 9.1 Troponin I High Sens 14 14 Radiography Chest X-Ray - ED: 2 View, Read by ED Physician, Read by Radiologist and No Acute Disease Diagnostic Testing: Clinical Impression(s) from Imaging Studies Chest X-Ray 10/23/23 13:20 IMPRESSION: Normal x-ray examination of the chest. Electronically Signed: Clem Restrepo MD at 13:42 EST , PA and lateral chest x-ray was obtained. There are 2 views. On my independent interpretation, lung herring are clear. There is normal cardiac silhouette. Bony thorax is normal. There is no acute process noted. Radiologist also interpreted the x-ray and agrees. EKG Initial EKG: Attestation: I personally reviewed and interpreted this EKG as follows: Interpretation: Sinus Rhythm (71) and No Acute Injury Pattern Comments: EKG was obtained. On my independent interpretation, it showed a normal sinus rhythm with a rate of 71. UT interval, QRS interval, and QTc intervals were all normal. [place] was normal. There are no acute ST or T wave changes. Prior EKG tracings: available for review Prior: Unchanged (05/30/2023) Treatment and Re-Evaluation :: Patient was given aspirin here. Patient is feeling better on reevaluation. Patient was advised of her findings. Patient has a HEART score of 1. Patient was advised that this is low risk for acute cardiac event. Patient was instructed to follow-up with her primary care physician in 5 to 7 days. Patient was instructed return if worse in any way. Patient understood and was agreeable with the plan. All questions were answered. Discharge Plan Triage Chief Complaint: Chest Pain ED Provider: Rodríguez Tian Dx/Rx/DC Orders Clinical Impression: Elevated blood pressure reading with diagnosis of hypertension, Chest pain Instructions: ED Chest Pain, Uncertain Cause Primary Care Provider: ARACELIS CAMPO Referrals: ARACELIS CAMPO [Other] - 5-7 Days Disposition Disposition: Home, Self Care
--- NOTE | 2023-10-23 12:50 | EKG12_ITS ---
Test Reason : DYSRHYTHMIA Blood Pressure : / mmHG Vent. Rate : 071 BPM Atrial Rate : 071 BPM P-R Int : 146 ms QRS Dur : 078 ms QT Int : 366 ms P-R-T Axes : 043 002 010 degrees QTc Int : 397 ms Normal sinus rhythm Normal ECG Confirmed by MARÍA ELENA HELTON, DINAH ([id number]), research editor TAI MOORE ([id number]) on 10/27/2023 9:19:31 AM Referred By: VERO Confirmed By:CYRIL RING MD
[2023-10-23 13:04] VITALS: O2SAT 99
[2023-10-23] MEDS: Aspirin 81 MG TAB.CHEW 324 MG PO (13:10)
--- NOTE | 2023-10-23 13:20 | RAD_ITS ---
STUDY: X-RAY CHEST REASON FOR EXAM: Female, 33 years old. Chest pain TECHNIQUE: PA and lateral views of the chest. COMPARISON: Comparison is made with prior study May 30, 2023. FINDINGS: EKG electrodes are seen. The lungs are clear and expanded. There is no demonstrated pleural abnormality. Normal size heart. Normal mediastinum and ceferino. Normal visualized pulmonary arteries. Normal visualized aortic arch and descending thoracic aorta. Normal visualized thoracic spine. Normal visualized ribs, clavicles, and shoulders. There is no demonstrated abnormality of the visualized soft tissue structures of the upper abdomen. RAD/Chest PA and Lateral IMPRESSION: Normal x-ray examination of the chest. Electronically Signed: Clem Restrepo MD at 13:42 EST ,
[2023-10-23 13:31] LABS: Absolute Lymphocyte Count 1.41 X10^3/uL (0.83-4.51); Absolute Neutrophil Count 4.9 X10^3/uL (2.0-7.7); Basophil# 0.04 X10^3/uL; Basophil% 0.6 % (0-1); Eosinophil# 0.18 X10^3/uL; Eosinophils% 2.6 % (0-5); Hematocrit 37.9 % (37-47); Hemoglobin 12.6 g/dL (12.0-15.0); Lymphocyte # 1.41 X10^3/ul (0.83-4.51); Lymphocyte % 20.1 % (19-41); Mean Corp Hgb Conc 33.2 g/dL (32-36); Mean Corpuscular Hgb 29.3 pg (27.0-32.0); Mean Corpuscular Volume 88.1 fL (81-99); Mean Platelet Vol. 10.8 fl (6.2-12.0); Monocyte# 0.51 X10^3/uL; Monocyte% 7.3 % (0-10); NRBC Flagged by Analyzer 0 % (0-5); Neutrophil # 4.87 X10^3/uL (2.7-7.7); Neutrophil % 69.3 % (47-70); Platelet Count 208 K/mm3 (150-450); RBC Distribution Width CV 13.2 % (11.6-14.6); RBC Distribution Width SD 42.3 fl (35.1-43.9)
[2023-10-23 13:48] LABS: Anion Gap 5 (5-15); BUN 12 mg/dL (7-18); BUN/Creat Ratio 14.8 RATIO (10-20); Calcium,Total 9.1 mg/dL (8.5-10.1); Chloride 108 mmol/L (98-107); Creatinine, Serum 0.81 mg/dL (0.55-1.02); EST Glomerular Filtration Rate 86 mL/min (>60); Est Glom Filt Rate - Afr Amer 104 mL/min (>60); Estimated Creatinine Clearance 114.06 ml/min; Glucose 94 mg/dL (74-106); Potassium 3.6 mmol/L (3.5-5.1); Sodium Level 140 mmol/L (136-145); Troponin-I HS (w/2H Reflex) 14 pg/mL (3.0-54.0)
[2023-10-23 13:57] VITALS: PULSE 72; RESP 16; O2SAT 99
[2023-10-23 14:05] VITALS: BP 124/73; PULSE 76; RESP 15; O2SAT 99
[2023-10-23 14:31] LABS: D-Dimer Quantitative (DVT/PE) < 0.27 FEU/ug/m (0.27-0.49)
[2023-10-23 15:23] LABS: Reflex Troponin-HS? (from REC) Y
[2023-10-23 16:35] LABS: Troponin-I HS 14 pg/mL (3.0-54.0)
[2023-10-23 16:44] VITALS: BP 120/74; PULSE 79; RESP 16; TEMP 36.6; O2SAT 100
== END 2023-10-23 16:44 | disposition home or self-care (01) ==
PROVIDERS: Emergency Provider Emergency Medicine; Visit Provider Emergency Medicine
DX: R07.9 Chest pain, unspecified (principal); I10 Essential (primary) hypertension; R06.00 Dyspnea, unspecified; R42 Dizziness and giddiness
CPT/HCPCS: 71046; 80048; 84484; 85025; 85379; 93005; 99284; A4216

== ENCOUNTER → 2024-12-24 | Outpatient (CLI) | payer OTHER, SELFPAY ==
[2024-12-24 16:08] LABS: Absolute Lymphocyte Count 1.73 X10^3/uL (0.83-4.51); Absolute Neutrophil Count 9.4 X10^3/uL (2.0-7.7); Basophil# 0.05 X10^3/uL; Basophil% 0.4 % (0-1); Eosinophil# 0.15 X10^3/uL; Eosinophils% 1.2 % (0-5); Hematocrit 37.2 % (37-47); Hemoglobin 12.5 g/dL (12.0-15.0); Lymphocyte # 1.73 X10^3/ul (0.83-4.51); Mean Corp Hgb Conc 33.6 g/dL (32-36); Mean Corpuscular Hgb 29.5 pg (27.0-32.0); Mean Corpuscular Volume 87.7 fL (81-99); Mean Platelet Vol. 10.8 fl (6.2-12.0); Monocyte# 0.79 X10^3/uL; Monocyte% 6.4 % (0-10); NRBC Flagged by Analyzer 0 % (0-5); Neutrophil # 9.42 X10^3/uL (2.7-7.7); Neutrophil % 76.3 % (47-70); Platelet Count 249 K/mm3 (150-450); RBC Distribution Width CV 13.3 % (11.6-14.6); RBC Distribution Width SD 42.8 fl (35.1-43.9); Red Blood Count 4.24 M/mm3 (4.2-5.4); White Blood Count 12.4 K/mm3 (4.4-11.0)
[2024-12-24 16:40] LABS: HIV Nonreactive (Nonreactive); Hepatitis B Surface Antigen Nonreactive (Nonreactive); Hepatitis C Antibody Nonreactive (Nonreactive); Rubella IgG REAC (Nonreactive); Syphilis Antibodies Nonreactive (Nonreactive)
[2024-12-24 16:52] LABS: Hemoglobin A1c 5.1 % (<=5.6)
== END | disposition home or self-care (01) ==
PROVIDERS: Registered Nurse; Referring Provider Obstetrics & Gynecology; Visit Provider Obstetrics & Gynecology
DX: O99.210 Obesity complicating pregnancy, unspecified trimester (principal); Z3A.00 Weeks of gestation of pregnancy not specified
CPT/HCPCS: 36415; 83036; 85025; 86703; 86762; 86780; 86803; 86850; 86900; 86901; 87340

== ENCOUNTER → 2024-12-24 | Outpatient (CLI) | payer OTHER, SELFPAY ==
--- NOTE | 2024-12-24 15:09 | US_ITS ---
PROCEDURE: INIT OB < 14WKS US, 12/24/2024 REASON FOR EXAM: WELL BEING. Reportedly, 9 weeks 4 days gestation with ANTHONY 07/25/2025 by previously established dates. TECHNIQUE: Grayscale and color doppler transvaginal pelvic ultrasound was performed with attention to the uterus and associated early gestation. COMPARISON: None FINDINGS: A single intrauterine gestational sac is identified. Gestational sac: Mean sac diameter 34 mm corresponding to 8 weeks 4 days.. Trace perigestational fluid up to 2 mm in thickness and 13 mm in the length suspicious for a tiny perigestational hemorrhage involving under 25% of the gestational sac circumference. [place]-rump length: 27 mm. Gestational age based on CRL: 9 weeks and 2 days. Yolk sac: Present. Cardiac activity: Present, 180 bpm. Estimated delivery date (ANTHONY): 07/27/2025 by CRL. Uterus: 11.6 x 7.2 x 6.1 cm, otherwise unremarkable. Cervix: Unremarkable, closed. Right ovary: 2.7 x 1.9 x 3.3 cm, unremarkable. Left ovary: Nonvisualized, potentially due to positioning and/or shadowing bowel gas. Other: No significant visualized pelvic free fluid. US/Init OB < 14Wks US IMPRESSION: 1. Single living intrauterine gestational sac with an estimated gestational age of 9 weeks 2 days corresponding to ANTHONY 07/27/2025, compatible with previously established dates. 2. Suspect a trace perigestational hemorrhage, 2 mm in thickness involving less than 25 % of the gestational sac circumference. Clinical follow-up recommended. 3. Borderline tachycardia is nonspecific. Recommend clinical follow-up. 4. Recommend routine complete anatomic survey at 20 weeks. 5. Additional description as above. Reading Location: [id number]
== END | disposition home or self-care (01) ==
LOC: US 15:08
PROVIDERS: Referring Provider Obstetrics & Gynecology; Visit Provider Obstetrics & Gynecology
DX: Z34.00 Encounter for supervision of normal first pregnancy, unspecified trimester (principal)
CPT/HCPCS: 76801